=== PATIENT | male | born 1980 | race Two or more races ===

== ENCOUNTER 2017-03-09 16:11 | Emergency (ER) | payer OTHER ==
[~2017-03-09] VITALS: Ht 172.7 cm; Wt 89.0 kg
[2017-03-09] MEDS ORDERED: PLEASE ENTER ALLERGIES MC SCH ×2 (16:30)
[2017-03-09] MEDS ORDERED: PLEASE ENTER HEIGHT AND WEIGHT MC SCH (16:30)
[2017-03-09] MEDS ORDERED: CEFAZOLIN PMX 1GM/50ML 50 ML IVPB ONE (16:30)
[2017-03-09] MEDS ORDERED: CEFTRIAXONE PMX 1GM/50ML 50 ML ONE (16:38)
[2017-03-09] MEDS ORDERED: CEFAZOLIN PMX 1GM/50ML 50 ML ONE (16:43)
[2017-03-09] MEDS ORDERED: LIDOCAINE 1%, 20ML ONE (16:57)
[2017-03-09] MEDS ORDERED: LIDOCAINE 1%, 20ML SQ ONE (17:00)
[2017-03-09] MEDS ORDERED: DIPH,PERTUSS(ACELL),TET VAC/PF 0.5 ML IM-VACC ONE ×2 (17:12→18:00)
[2017-03-09] MEDS ORDERED: BACITRACIN ZINC OINT 500U/GM, 0.9 GM ONE (17:55)
[2017-03-09 18:31] VITALS: BP 124/84
== END 2017-03-09 18:34 | disposition home or self-care (01) ==
LOC: ED 17:54
DX: S61.212A Laceration without foreign body of right middle finger without damage to nail, initial encounter (principal); W29.8XXA Contact with other powered hand tools and household machinery, initial encounter; Y93.89 Activity, other specified; Y99.8 Other external cause status; Y92.009 Unspecified place in unspecified non-institutional (private) residence as the place of occurrence of the external cause
CPT/HCPCS: 13132; 73140; 90471; 90715; 96365; 99285; J0690; J3490

== ENCOUNTER 2017-05-04 05:23 | Day surgery (SDC) | payer OTHER ==
[~2017-05-04] VITALS: Ht 172.7 cm; Wt 96.0 kg
[2017-05-04] MEDS ORDERED: LACTATED RINGERS 1,000 ML IV SCH (05:48)
[2017-05-04 05:50] VITALS: BP 134/90
[2017-05-04] MEDS ORDERED: MOTRIN PO (05:59)
[2017-05-04] MEDS ORDERED: LIDOCAINE 1%, 2ML SQ PRN (06:00)
[2017-05-04] MEDS ORDERED: BUPIVACAINE/PF 0.5% ONE (06:42)
[2017-05-04] MEDS ORDERED: LIDOCAINE/PF 1%, 30ML ONE (06:43)
[2017-05-04] MEDS ORDERED: FENTANYL PF 100 MCG/2ML ONE (06:51)
[2017-05-04] MEDS ORDERED: PROPOFOL 10 MG/ML, 20ML ONE (06:52)
[2017-05-04] MEDS ORDERED: MIDAZOLAM 1 MG/ML, 2ML ONE (06:52)
[2017-05-04] MEDS ORDERED: CEFAZOLIN 1,000 MG ONE ×3 (06:52)
[2017-05-04] MEDS ORDERED: LIDOCAINE 1%, 20ML INFIL ONE (07:04)
[2017-05-04] MEDS ORDERED: BUPIVACAINE/PF 0.5% INFIL ONE (07:05)
[2017-05-04] MEDS ORDERED: EPHEDRINE 50 MG/ML, 1ML IVPush PRN (07:30)
[2017-05-04] MEDS ORDERED: ACETAMINOPHEN 325 MG TABLET PO PRN (07:30)
[2017-05-04] MEDS ORDERED: MEPERIDINE/PF 25MG/0.5ML IVPush PRN (07:30)
[2017-05-04] MEDS ORDERED: HYDROmorphone 1 MG/ML, 1ML IV PRN (07:30)
[2017-05-04] MEDS ORDERED: KETOROLAC 30 MG/1 ML IV PRN (07:30)
[2017-05-04] MEDS ORDERED: ONDANSETRON 2MG/ML, 2ML IVPush PRN (07:30)
[2017-05-04] MEDS ORDERED: LABETALOL 5MG/ML, 20ML IV PRN (07:30)
[2017-05-04] MEDS ORDERED: hydrALAzine 20 MG/ML, 1ML IV PRN (07:30)
[2017-05-04] MEDS ORDERED: OXYcodone 5 MG/5 ML ORAL.SOL UDC PO PRN (07:30)
[2017-05-04] MEDS ORDERED: FENTANYL PF 100 MCG/2ML IV PRN (07:30)
[2017-05-04] MEDS ORDERED: METOPROLOL 1 MG/ML, 5ML IV PRN (07:30)
[2017-05-04] MEDS ORDERED: ALBUTEROL SULFATE 2.5 MG/3 ML NPPB PRN (07:30)
== END 2017-05-04 09:20 | disposition home or self-care (01) ==
LOC: OUT 05:23
PROVIDERS: ATTEND Orthopaedic Surgery
DX: S68.112A Complete traumatic metacarpophalangeal amputation of right middle finger, initial encounter (principal); X58.XXXA Exposure to other specified factors, initial encounter; Y93.89 Activity, other specified; Y92.89 Other specified places as the place of occurrence of the external cause; Y99.8 Other external cause status
CPT/HCPCS: 26951; J0690; J2250; J2704; J3010; J3490; J7120